=== PATIENT | female | born 2000 | race Caucasian/White ===

== ENCOUNTER 2022-03-17 02:59 | Emergency (ER) | payer OTHER ==
[~2022-03-17] VITALS: Ht 157.5 cm; Wt 60.4 kg
[2022-03-17 03:03] VITALS: BP 138/83
--- NOTE | 2022-03-17 03:05 | NUR ---
PT TAKEN TO BED 09.
[2022-03-17] MEDS ORDERED: KETOROLAC 60 MG/2 ML VIAL IM ONE (03:15)
[2022-03-17] MEDS ORDERED: diphenhydrAMINE 50 MG/ML VIAL IM ONE (03:15)
[2022-03-17] MEDS ORDERED: PROCHLORPERAZINE 10 MG/2 ML VIAL IM ONE (03:15)
[2022-03-17 03:59] VITALS: BP 122/81
== END 2022-03-17 04:00 | disposition home or self-care (01) ==
LOC: MED 02:59
DX: R51.9 Headache, unspecified (principal); R11.2 Nausea with vomiting, unspecified
CPT/HCPCS: 81025; 96372; 99284; J0780; J1200; J1885